=== PATIENT | male | born 1950 | race Asian ===

== ENCOUNTER 2019-11-25 17:35 | Emergency (ER) | payer OTHER ==
[~2019-11-25] VITALS: Ht 180.3 cm; Wt 84.9 kg
[2019-11-25 17:35] VITALS: BP 141/78; TEMP 98
[2019-11-25 19:01] LABS: PLATELET COUNT 175 K/uL (142-355)
[2019-11-25] MEDS ORDERED: ABILIFY MYCITE10 MG PO (21:14)
[2019-11-25] MEDS ORDERED: CARBAMAZEPIN200 M1 PO (21:15)
[2019-11-25] MEDS ORDERED: LOSA50TA PO (21:16)
[2019-11-25] MEDS ORDERED: NAMENDA5 MG PO (21:18)
[2019-11-25] MEDS ORDERED: METOPROLOL25 M1 PO (21:20)
[2019-11-25] MEDS ORDERED: OMPRAZOLE (21:22)
[2019-11-25] MEDS ORDERED: PROAIR HFA108 MCG/AC INH (21:24)
[2019-11-25] MEDS ORDERED: CITALOPRAM20 MG PO (21:26)
[2019-11-25] MEDS ORDERED: DONEPEZIL HYDRO10 M1 PO (21:27)
[2019-11-25] MEDS ORDERED: DOXEPIN HCL100 MG PO (21:29)
[2019-11-25] MEDS ORDERED: SM MELATONIN5 MG PO (21:30)
[2019-11-25] MEDS ORDERED: TYLENOL325 MG PO (21:32)
[2019-12-02] MEDS ORDERED: OXCARBAZEPIN300 MG PO (09:34)
[2019-12-02] MEDS ORDERED: ABILIFY 10MG TAB PO (09:34)
[2019-12-02] MEDS ORDERED: ESCI10TA PO (09:34)
[2019-12-02] MEDS ORDERED: TRAZ50TA36 PO (09:34)
[2019-12-02] MEDS ORDERED: CHOL100034 PO (09:34)
== END 2019-11-25 19:34 | disposition other institution (70) ==
LOC: ED 17:35
PROVIDERS: Emergency Medicine
DX: F28 Other psychotic disorder not due to a substance or known physiological condition (principal); F31.89 Other bipolar disorder; Z03.818 Encounter for observation for suspected exposure to other biological agents ruled out
CPT/HCPCS: 80053; 85027; 87635; 93005; 99283; U0002